=== PATIENT | male | born 2000 | race Caucasian/White ===

== ENCOUNTER 2023-02-04 20:36 | Emergency (ER) | payer BC, SELFPAY ==
--- NOTE | ~2023-02-04 | XR_ITS ---
EXAMINATION: XR chest 1V portable Exam Date/Time: 02/04/2023 22:20 CDT HISTORY: dyspnea, ANXIETY Comparison: 01/19/2019. RESULT: Lines, tubes, and devices: None. Lungs and pleura: Clear. Cardiomediastinal silhouette: Stable. Other: No acute osseous or upper abdominal finding. Bilateral cervical ribs. IMPRESSION: No acute cardiopulmonary process. Reviewed, dictated and finalized at location K.
[2023-02-04 20:54] VITALS: BP 119/52; PULSE 66; RESP 20; TEMP 36.5; O2SAT 100
--- NOTE | 2023-02-04 21:07 | ECG_ITS ---
Measurements Intervals [place] Rate: 76 P: 75 MO: 175 QRS: 64 QRSD: 102 T: 66 QT: 352 QTc: 397 Interpretive Statements SINUS RHYTHM (SIGNIFICANT BASELINE ARTIFACT) INCOMPLETE RIGHT BUNDLE BRANCH BLOCK BASELINE ARTIFACT- II, III, AVR, AVL, AVF, V1-V6 BORDERLINE ECG NO PREVIOUS ECG AVAILABLE FOR COMPARISON Electronically Signed On 02-05-2023 6:49:17 CDT by Fernandez Ba D.O.
--- NOTE | 2023-02-04 22:02 | ED.GENADULT ---
HPI - General Adult General Chief complaint: Anxiety Stated complaint: anxiety attack Time Seen by Provider: 02/04/23 21:37 Source: patient Mode of arrival: EMS Limitations: no limitations History of Present Illness HPI narrative: This is a 22-year-old male who presents to the ED via EMS with chief complaint of panic attack onset this evening just prior to arrival. He endorses history of anxiety and multiple panic attacks in the past. Patient reports he received bad news regarding his relationship which caused him to have a lot of stress and acute onset of anxiety today. He became very upset and feels like he started to spiral. He then states that he started to have shortness of breath and chest pain. Also reports bilateral hand tingling. Patient's mother is here and states that he was shaking, hyperventilating for nearly an hour. They called EMS shortly after. Per report EMS gave 2 mg of Versed before driving over to the hospital. Patient states that he is now feeling completely symptomatically improved. Denies any further complaints. Related Data Allergies Allergy/AdvReac Type Severity Reaction Status Date / Time No Known Allergies Allergy Verified 02/27/21 07:51 [facility] Past Medical History Medical History BMI 20.0-20.9, adult Family History Family History Father No problems noted. Mother No problems noted. Sibling No problems noted. Other Diabetes mellitus Family history of lung cancer Family history of thyroid disease Hypertension Social History Social History Smoking status: Never smoker Second hand tobacco smoke exposure: No Alcohol intake: never Substance use: never Substance use type: does not use Living arrangements: with family Occupation/Education: occupation Additional occupation/education comments: [employer] Exam Narrative: GENERAL: Well-appearing, well-nourished, and in no acute distress. HEAD: Normocephalic, atraumatic. EYES: PERRLA and EOMI. ENT: Nares clear, no rhinorrhea or epistaxis. Mucous membranes moist. Oropharynx without tonsillar hypertrophy exudate or other lesions. NECK: Supple. No adenopathy or masses. CHEST: No respiratory distress. Clear to auscultation. No wheezes rales or rhonchi HEART: Regular rate and rhythm. No murmur heard. Normal peripheral pulses. ABDOMEN: Soft, nontender, nondistended, normal active bowel sounds. MSK: Normal range of motion. No edema. SKIN: Warm, dry, no rash. NEURO: Alert and oriented x3. No focal deficits. PSYCH: Normal mood and affect. Course Vital Signs Vital signs: Vital Signs Temperature 97.7 F 02/04/23 20:54 Pulse Rate 66 02/04/23 20:54 Respiratory Rate 20 02/04/23 20:54 Blood Pressure 119/52 L 02/04/23 20:54 Pulse Oximetry 100 02/04/23 20:54 Oxygen Delivery Room Air 02/04/23 20:54 Temperature 97.7 F 02/04/23 20:54 Pulse Rate 64 02/04/23 22:41 Respiratory Rate 18 02/04/23 22:41 Blood Pressure 142/70 H 02/04/23 22:41 Pulse Oximetry 99 02/04/23 22:41 Oxygen Delivery Room Air 02/04/23 20:54 Medical Decision Making MDM Narrative Medical decision making narrative: This is a 22-year-old male who presents to the ED via EMS for panic attack. He is here with his mother who states this is the worst one he has ever had. He is symptomatically much better upon arrival after receiving Versed from EMS. Vitals are normal. Patient's EKG is without acute findings. Chest x-ray is negative as well. He will be discharged in stable condition. Patient and mother are in agreement that he needs to follow-up with his PCP to address his anxiety. Return precautions were given. Vital Signs Vital Signs: Vital Signs Temperature 97.7 F 02/04/23 20:54 Pulse Rate 66 02/04/23 20:54 Respirat
--- NOTE | 2023-02-04 22:17 | ECG_ITS ---
Measurements Intervals [place] Rate: 69 P: 84 [place]: 159 QRS: 73 QRSD: 102 T: 84 QT: 359 QTc: 386 Interpretive Statements SINUS RHYTHM INCOMPLETE RIGHT BUNDLE BRANCH BLOCK BORDERLINE ST-T WAVE ABNORMALITY- ANTERIOR LEADS BASELINE ARTIFACT- I, II, III, AVL BORDERLINE ECG COMPARED TO ECG 02/04/2023 20:46:00 NO SIGNIFICANT CHANGES Electronically Signed On 02-05-2023 6:49:54 CDT by Fernandez Ba D.O.
[2023-02-04 22:41] VITALS: BP 142/70; PULSE 64; RESP 18; O2SAT 99
== END 2023-02-04 22:41 | disposition home or self-care (01) ==
PROVIDERS: Emergency Provider Physician Assistant; PCP Family Medicine
DX: F41.0 Panic disorder [episodic paroxysmal anxiety] (principal); I45.10 Unspecified right bundle-branch block; R94.31 Abnormal electrocardiogram [ECG] [EKG]
CPT/HCPCS: 71045; 93005; 99283